=== PATIENT | female | born 1980 | race Caucasian/White ===

== ENCOUNTER 2018-03-18 08:16 | Emergency (ER) | payer BC, OTHER ==
[2018-03-18 08:30] VITALS: BP 117/62; PULSE 78; TEMP 98.6; BMI 16.8
--- NOTE | 2018-03-18 08:47 | PDOC ---
History of Present Illness - General Chief Complaint: Eye Problem Stated Complaint: EYE PROBLEM Time Seen by Provider: 03/18/18 08:45 History Source: Patient Exam Limitations: No Limitations - History of Present Illness Initial Comments: 03/18/18 09:09 Came with complaints of excessive tearing and itching to right eye. States woke up this morning with swelling and clear drainage. States visual acuity is normal , and is not painful. Has taken no medications for relief of same. Suffers from seasonal ALLERGIES but is not taking antihistamines. Timing/Duration: unsure, 24 hours Associated Symptoms: reports: malaise. denies: fever/chills Past History - Travel Traveled outside of the country in the last 30 days: No Close contact w/someone who was outside of country & ill: No - Past Medical History Allergies/Adverse Reactions: Allergies Allergy/AdvReac Type Severity Reaction Status Date / Time No Known Allergies Allergy Verified 03/18/18 08:25 Home Medications: Ambulatory Orders Cetirizine HCl/Pseudoephedrine [Allergy+Congestion Relf-D Tab] 1 each PO DAILY # 30 tab 03/18/18 Ketotifen Fumarate [Zaditor] 5 ml OP TID PRN #1 bottle 03/18/18 COPD: No Other medical history: DENIES. - Suicide/Smoking/Psychosocial Hx Smoking History: Never smoked Review of Systems - Review of Systems Able to Perform ROS?: Yes Is the patient limited [place] proficient: Yes Constitutional: Yes: Symptoms Reported, See HPI, Malaise. No: Fever HEENTM: Yes: Symptoms Reported, See HPI, Eye Pain, Tearing, Nose Congestion Respiratory: Yes: Symptoms reported, See HPI. No: Cough, Wheezing ABD/GI: Yes: Symptoms Reported Musculoskeletal: No: Symptoms Reported Integumentary: No: Symptoms Reported All Other Systems: Reviewed and Negative *Physical Exam - Vital Signs Last Vital Signs Temp Pulse Resp BP Pulse Ox 98.6 F 78 19 117/62 100 03/18/18 08:25 03/18/18 08:25 03/18/18 08:25 03/18/18 08:25 03/18/18 08:25 - Physical Exam General Appearance: Yes: Nourished, Appropriately Dressed, Apparent Distress, Mild Distress HEENT: positive: [place], TMs Normal, Rhinorrhea, Sinus Tenderness Neck: positive: Supple, Lymphadenopathy (R), Lymphadenopathy (L). negative: Tender Respiratory/Chest: positive: Lungs Clear, Normal Breath Sounds Gastrointestinal/Abdominal: positive: Soft. negative: Tender Musculoskeletal: positive: Normal Inspection Extremity: positive: Normal Capillary Refill, Normal Inspection Integumentary: positive: Dry, Warm, Pale Neurologic: positive: guest services coordinator II-XII NML intact, Fully Oriented, Alert, Normal Mood/ Affect, Normal Response, Motor Strength 5 Medical Decision Making - Medical Decision Making 03/18/18 09:07 ALLERGIC conjunctivitis, will treat with satted door and antihistamines. Encouraged follow-up with PMD if symptoms worsen *DC/Admit/Observation/Transfer Diagnosis at time of Disposition: Allergic conjunctivitis Qualifiers: Laterality: right Qualified Code(s): H10.11 - Acute atopic conjunctivitis, right eye - Discharge Dispostion Disposition: HOME Condition at time of disposition: Stable Decision to Admit order: No - Prescriptions Prescriptions: Cetirizine HCl/Pseudoephedrine [Allergy+Congestion Relf-D Tab] 1 each PO DAILY # 30 tab Ketotifen Fumarate [Zaditor] 5 ml OP TID PRN #1 bottle PRN Reason: allergic conjuctivitis - Referrals - Patient Instructions Printed Discharge Instructions: DI for Allergic Rhinitis, Allergies, Respiratory (Alternative Therapy) Additional Instructions: Rest, drink lots of fluids: Teas, water, soups Saltwater gargles. Consider humidifier in room at night Steamy showers/seem to face break up mucus Avoid contact with allergens, exposure to pollens, close windows on a windy day Lots of handwashing and good hygiene Continue [id number] medications for symptomatic relief- may use allergic eyedrops for itching I Continue antihistamines daily until pollen season is over; Zyrtec, Claritin, Catina during the daytime and Benadryl at nighttime as will make sleepy The door eyedrops 2 drops in affected eyes twice a day until clear Tylenol or Motrin for fever and pain Followup with private physician in one to 2 days as needed Consider following up with an restorer paper and prints/export coordinator for skin testing and possible allergy shots Return to emergency department for worsened symptoms, fevers, dehydration - Post Discharge Activity Forms/Work/School Notes: Back to Work
== END 2018-03-18 09:34 | disposition home or self-care (01) ==
LOC: JERFT 08:16 → JER 08:16 → JERFT 09:34
DX: J30.2 Other seasonal allergic rhinitis (principal); H10.11 Acute atopic conjunctivitis, right eye
CPT/HCPCS: 99281-25